=== PATIENT | male | born 1955 | race Caucasian/White ===

== ENCOUNTER 2020-06-03 15:12 | Inpatient (IN) | payer MEDICARE ==
[2020-06-03] MEDS ORDERED: HEPARIN SODIUM,PORCINE 5,000 UNIT/ML 1 ML VIAL IV STA (15:15)
--- NOTE | 2020-06-03 15:22 | ED ---
Chest Pain HPI - General Chief Complaint: Chest Pain Stated Complaint: STEMI Time Seen by Provider: 06/03/20 15:12 Source: EMS Mode of arrival: EMS Limitations: no limitations - History of Present Illness Initial Comments: Patient is a 65-year-old male with past medical history of coronary disease status post CABG in 2005 presents the emergency room with reported chest pain. He states that it started around 1:30 PM today. He did take 2 nitro at home however they're . It did not help his pain. He felt nauseated and diaphoretic. He also took 2 baby aspirins. He called EMS who gave him 2 additional baby aspirins as well as 2 more nitros. Patient's pain is around 3 out of 10. EMS performed EKG which demonstrated inferior ST elevation. STEMI call was activated prior to hospital arrival - Related Data Previous Rx's Medication Instructions Recorded Albuterol Inhaler [Ventolin Hfa 2 puff INHALATION RT-QID PRN #1 06/06/20 Inhaler] inhaler Aspirin 81 mg PO DAILY #30 chew 06/06/20 Atorvastatin [Lipitor] 80 mg PO DAILY #30 tab 06/06/20 Clopidogrel [Plavix] 75 mg PO DAILY #30 tab 06/06/20 Losartan [Cozaar] 50 mg PO DAILY #50 tab 06/06/20 Metoprolol Tartrate [Lopressor] 25 mg PO BID #60 tab 06/06/20 Allergies Allergy/AdvReac Type Severity Reaction Status Date / Time Penicillins Allergy Unknown Verified 06/03/20 19:46 Childhood Review of Systems ROS Statement: Those systems with pertinent positive or pertinent negative responses have been documented in the HPI. ROS Other: All systems not noted in ROS Statement are negative. EKG Findings - EKG Comments: EKG Findings:: EKG demonstrates a normal sinus rhythm with a ventricular rate of 80. ID interval 166. QRS 102. QTC of 46. Acute ST segment elevations in leads 2, 3, aVF. Reciprocal depression in AVL Past Medical History Past Medical History: Hypertension, Myocardial Infarction (IN) History of Any Multi-Drug Resistant Organisms: None Reported Past Surgical History: Coronary Bypass/CABG, Heart Catheterization With Stent Additional Past Surgical History / Comment(s): 2004 4 vessel Past Psychological History: No Psychological Hx Reported Smoking Status: Current every day smoker Past Alcohol Use History: Occasional Past Drug Use History: None Reported General Exam Limitations: no limitations General appearance: alert, in no apparent distress Head exam: Present: atraumatic, normocephalic, normal inspection Eye exam: Present: normal appearance, PERRL, EOMI. Absent: scleral icterus, conjunctival injection, periorbital swelling ENT exam: Present: normal exam, mucous membranes moist Neck exam: Present: normal inspection. Absent: tenderness, meningismus, lymphadenopathy Respiratory exam: Present: normal lung sounds bilaterally. Absent: respiratory distress, wheezes, rales, rhonchi, stridor Cardiovascular Exam: Present: regular rate, normal rhythm, normal heart sounds. Absent: systolic murmur, diastolic murmur, rubs, gallop, clicks GI/Abdominal exam: Present: soft, normal bowel sounds. Absent: distended, tenderness, guarding, rebound, rigid Extremities exam: Present: normal inspection, full ROM, normal capillary refill. Absent: tenderness, pedal edema, joint swelling, calf tenderness Back exam: Present: normal inspection Neurological exam: Present: alert, oriented X3, CN II-XII intact Psychiatric exam: Present: normal affect, normal mood Skin exam: Present: warm, dry, intact, normal color. Absent: rash Course Vital Signs 06/03/20 15:15 Temperature 97.9 F Pulse Rate 82 Respiratory 20 Rate Blood Pressure 131/76 O2 Sat by Pulse 94 L Oximetry Chest Pain [facility] STEMI call was activated prior to arrival. Patient does arrive and pain has markedly improved. Vitals are all stable. analytical lab technician is ready for the patient. I spoke with Dr. Almodovar who requested that the patient be evaluated prior to transport to analytical lab technician. EKG was obtained. Patient does have peripheral IV access. He is given 4000 units heparin. Patient is hemodynamically stable and transported to the analytical lab technician Disposition Clinical Impression: ST elevation myocardial infarction (STEMI) Disposition: ADMITTED IP TO THIS HOSP Condition: Serious Is patient prescribed a controlled substance at d/c from ED?: No Decision to Admit Reason: Admit from EC Decision Date: 06/03/20 Decision Time: 16:07
[2020-06-03] MEDS ORDERED: IV FLUID CONTINUATION 850 ML IV ONE (15:25)
[2020-06-03] MEDS ORDERED: MIDAZOLAM 2 MG/2 ML VIAL IV ONE (15:47)
[2020-06-03] MEDS ORDERED: LIDOCAINE 1% INJ 10MG/ML (20 ML MDV) SQ ONE (15:50)
[2020-06-03] MEDS ORDERED: HEPARIN SODIUM 1,000 UN/ML (10ML VL) ONE (15:58)
[2020-06-03] MEDS ORDERED: TIROFIBAN BOLUS 12.5MG/250 ML BAG IV ONE (15:59)
[2020-06-03] MEDS ORDERED: TIROFIBAN 12.5MG-250ML NS 250 ML IV ONE ×2 (16:00)
[2020-06-03 16:04] LABS: Basophils % (A) 1 %; Eosinophils # (A) 0.2 k/uL (0-0.7); Eosinophils % (A) 3 %; HCT 43.3 % (39.0-53.0); HGB 13.9 gm/dL (13.0-17.5); Lymphocytes # (A) 0.8 k/uL (1.0-4.8); Lymphocytes % (A) 12 %; MCH 30.9 pg (25.0-35.0); MCHC 32.2 g/dL (31.0-37.0); MCV 96.1 fL (80.0-100.0); Mean Platelet Volume 8.5; Monocytes # (A) 0.3 k/uL (0-1.0); Monocytes % (A) 4 %; Neutrophils # (A) 5.7 k/uL (1.3-7.7); Neutrophils % (A) 80 %; Platelet Count 135 k/uL (150-450); RBC 4.51 m/uL (4.30-5.90); RDW 12.5 % (11.5-15.5); WBC 7.2 k/uL (3.8-10.6)
[2020-06-03] MEDS ORDERED: HYDROmorphone 1 MG/ML 1 ML SYRINGE ONE ×2 (16:04→16:50)
[2020-06-03] MEDS ORDERED: HYDROmorphone 1 MG/ML 1 ML SYRINGE IVP ONE ×2 (16:05→16:53)
[2020-06-03] MEDS ORDERED: NALOXONE 0.4 MG/ML 1 ML VIAL IV PRN (16:06)
[2020-06-03] MEDS ORDERED: niCARdipine Syringe (1,000 mcg/10 mL) INTRACORON ONE (16:11)
[2020-06-03] MEDS ORDERED: IOPAMIDOL-370 100ML BTL INJ ONE ×3 (16:15→16:53)
[2020-06-03 16:16] LABS: African American GFR (CKD) >90 (>60 ml/min/1.73 sqM); Anion Gap 5 mmol/L; Blood Urea Nitrogen 12 mg/dL (9-20); Calcium 8.9 mg/dL (8.4-10.2); Carbon Dioxide 27 mmol/L (22-30); Chloride 106 mmol/L (98-107); Glucose 141 mg/dL (74-99); Magnesium 2.1 mg/dL (1.6-2.3); Non-African American GFR(CKD) >90 (>60 ml/min/1.73 sqM); Potassium 3.8 mmol/L (3.5-5.1); Sodium 138 mmol/L (137-145)
[2020-06-03] MEDS ORDERED: POTASSIUM CHLORIDE ER 20 MEQ TAB.ER PO STA (16:32)
[2020-06-03] MEDS ORDERED: METOPROLOL TARTRATE 5 MG/5 ML VIAL IVP ONE ×2 (16:49→16:53)
[2020-06-03] MEDS ORDERED: CLOPIDOGREL 75 MG TAB ONE (16:49)
[2020-06-03] MEDS ORDERED: CLOPIDOGREL 75 MG TAB PO ONE (16:54)
[2020-06-03] MEDS ORDERED: ZOLPIDEM 5 MG TAB PO PRN (17:18)
[2020-06-03 17:41] LABS: Glucose,Whole Blood 113 mg/dL (75-99)
[2020-06-03] MEDS: SODIUM CHLORIDE 0.9% 1,000 ML IV SCH (18:03)
[2020-06-03] MEDS: TIROFIBAN 12.5MG-250ML NS 250 ML IV SCH (18:04)
--- NOTE | 2020-06-03 18:51 | CC ---
CARDIAC CATHETERIZATION REPORT CARDIAC CATHETERIZATION AND PCI REPORT: DATE OF SERVICE: 06/03/2020. PROCEDURES: 1. Left heart catheterization and coronary angiography. 2. Selective injection of 3 vein grafts and a left internal mammary artery graft. 3. Percutaneous transluminal coronary angioplasty and stenting of body of the vein graft to the distal right coronary artery with a drug-eluting stent and percutaneous transluminal coronary angioplasty and stenting of PDA branch of RCA through the vein graft with a drug-eluting stent. PERFORMED BY: Dr. Kojo Almodovar. Moderate conscious sedation time was 67 minutes. Patient was administered Versed. Oxygen saturation, hemodynamics and EKG were monitored closely. CLINICAL INFORMATION: Mr. Guillermo Reyna is a 65-year-old gentleman with history of prior MO, PCI of RCA and bypass surgery in 2004 or so. He is a smoker, has hypertension, has not been taking medicines. He presented to the ER brought by EMS with inferior ST-elevation, advised prompt cardiac catheterization after evaluation. PROCEDURE NOTE: Under local anesthesia and strict aseptic precautions, a 6-Haitian introducer was placed in the right femoral artery. I started off with a right Miguel-type guide catheter and performed intervention of the right coronary artery graft. This was an SVG graft to RCA. I stented the body of the graft and the PDA branch beyond the graft insertion site. I then performed diagnostic cardiac catheterization. An AR2 catheter was used to perform selective injection of the 2 other vein grafts to the diagonal and OM. I used a Wolf catheter to get selective injection of the OLIVERA. I used a standard left Miguel catheter for the left coronary artery, and a pigtail catheter was used to check LV pressures. LV gram was not performed. Patient received 5500 units of heparin and he also received Aggrastat bolus and infusion as per protocol. He received 600 mg of Plavix orally. CARDIAC CATHETERIZATION FINDINGS: The left ventricular end-diastolic pressure was about 12 to 13 mmHg. There was no gradient across the aortic valve. CORONARY ANGIOGRAPHY FINDINGS: RIGHT CORONARY ARTERY: This vessel is totally occluded without any antegrade flow. It appears to have been stented. The stent is evident, but no flow is noted. LEFT MAIN CORONARY ARTERY: This is a short patent vessel that immediately bifurcates into LAD and circumflex. Left main itself has no significant disease. LEFT ANTERIOR DESCENDING CORONARY ARTERY: This gives off a large first diagonal branch. Then LAD is occluded with limited flow. The first diagonal has a 30% to 40% narrowing. No significant disease is noted. In the first diagonal no more than 40% narrowing. LEFT POSTERIOR CIRCUMFLEX CORONARY ARTERY: This vessel comes off as a single vessel with a tight 90% stenosis, limited flow noted. LEFT INTERNAL MAMMARY ARTERY GRAFT TO LAD: This graft is widely patent, has no disease at its origin and insertion site. Opacified LAD has mild diffuse disease but no significant stenosis. SAPHENOUS VEIN GRAFT TO THE OBTUSE MARGINAL BRANCH OF CIRCUMFLEX: This graft is patent, has no significant disease. Opacified obtuse marginal is small in caliber and distribution, has minor irregularities but no significant disease. SAPHENOUS VEIN GRAFT TO THE MAJOR DIAGONAL BRANCH OF LAD: This graft is widely patent. No significant disease at the origin, body or insertion site. Opacified diagonal is of fair caliber and distribution, has no significant disease. SAPHENOUS VEIN GRAFT TO THE RCA: This graft is highly diseased. There is a lot of thrombus burden in the graft. In the proximal one third of the body there is a 99% stenosis with thrombus. Middle one third has thrombus. Distally also there is some stenosis. It goes back and opacifies the [place] vessel to some extent. The PDA branch has a tight stenosis of about 80% to 90% noted. The PLV branch has a limited flow. Most of the flow is in the PDA branch, which has a 90% lesion, but the body of the graft also has significant thrombus and stenosis. LEFT VENTRICULOGRAM: Left ventriculogram was not performed. FINAL IMPRESSION: This patient has a right-dominant system, total occlusion of RCA, total occlusion of the LAD. Opacified diagonal is free of significant disease. Circumflex has limited flow. Vein graft to the RCA is the culprit lesion. There was a 99% stenosis with thrombus in the body, and beyond insertion site the opacified PDA has a 95% stenosis. PLV has limited flow. The vein grafts to the diagonal and obtuse marginal are widely patent. There is no gradient across aortic valve and filling pressures are good. RECOMMENDATIONS: I recommended PCI of vein graft to RCA and performed this expeditiously. PCI PROCEDURE DETAILS: A standard right Miguel guide catheter was used to cannulate the vein graft to RCA. A run-through wire was used to cross the lesion. Wire was kept distally. I used a 3.0 caliber Trek balloon to pre-dilate the entire vein graft in the proximal, mid and distal portion. A 23 mm long 3.5 caliber Xience stent was deployed in the body of the graft proximally. Excellent angiographic result was achieved. I then noted that the PDA had a very tight stenosis. I advanced the run-through wire, kept it in the distal aspect of the PDA. I pre-dilated this with a 2.5 caliber 20 mm NC Emerge balloon. I then used a 3.0 caliber 23 mm long Xience stent and deployed this in the PDA branch. Excellent angiographic result without complication was achieved. The sheath was taken out and Perclose device used to secure hemostasis. Patient received 600 mg of Plavix. He also received Aggrastat bolus and infusion and 5500 units of heparin. ACT was initially 282. At the end of the procedure it was 265. Results were discussed with the patient and his . He was sent to the ICU in a stable condition. MMODL / IJN: [id number] /
[2020-06-03] MEDS ORDERED: RX INFO: IV CONTRAST WAS GIVEN 1 EACH MISC MISCELLANE PRN (18:57)
--- NOTE | 2020-06-03 18:57 | CONS ---
CONSULTATION This is a 65-year-old retired gentleman who lives in [place] but has his health care in [facility]. He sees a jewelry designer by name Demetrio and apparently had aortocoronary bypass surgery in 2005 with 4 bypasses. Following coronary angiography, I discovered that these bypasses are OLIVERA to LAD, vein graft to the distal RCA, vein graft to the major diagonal branch and a vein graft to the obtuse marginal branch of circumflex. Prior to his bypass surgery, he did have an TX and had stenting of RCA. This gentleman was doing fairly well at home. Suddenly he developed discomfort in the chest which he describes as a heavy pressure that came on and made him quite uncomfortable. He also had some diaphoresis and came into the hospital, was found to have an inferior ST elevation and was taken to the lab assistant promptly after giving him aspirin 325 mg and also heparin 4000 units intravenously. I saw him in the lab assistant. At that time he was complaining of 6/10 chest pain, had a [address] elevation, but was hemodynamically stable. I recommended prompt cardiac catheterization. PAST MEDICAL HISTORY: Past medical history is remarkable for hypertension and CAD, prior bypass surgery and prior TX and PCI. However, patient has not been taking any medications lately. He takes aspirin occasionally. MEDICATIONS: None at this time. He used to be on metoprolol in the past but stopped taking it at least for 2-3 months. He takes aspirin occasionally. ALLERGIES: NONE. REVIEW OF SYSTEMS: Remarkable for chest discomfort with exertion that has been going on for the last month or two and prolonged pain since yesterday. At the time of my evaluation he is comfortable. Around 1:30 p.m. today he started having chest pain that got progressively worse and EMS was called. They gave him 2 more nitros, with modest improvement in pain. PHYSICAL EXAMINATION: On examination, blood pressure is 140/80, pulse rate is 70 per minute, regular. HEENT unremarkable. Fundus was not examined by me. Neck is supple. There is no JVD. I do not hear a carotid bruit. Heart exam reveals S1, S2 heard normally. No significant murmurs. Lungs are clear. Abdomen is soft, nontender. Lower extremities reveal palpable pulses. No edema. Central nervous system is normal. EKG revealed sinus mechanism with inferior ST elevation suggestive of acute inferior ST- elevation TX, but there are also some Q-waves in the inferior leads as well. The patient is a smoker and has hypertension. IMPRESSION: 1. Acute inferior ST-elevation myocardial infarction. 2. History of smoking and chronic obstructive pulmonary disease. 3. History of prior inferior myocardial infarction, percutaneous coronary intervention and eventually bypass surgery in either 2004 or 2005. RECOMMENDATIONS: I recommended prompt cardiac catheterization and PCI and proceeded to perform this in the same setting. MMODL / IJN: [id number] /
[2020-06-03] MEDS: METOPROLOL TARTRATE 25 MG TAB PO SCH (21:29)
[2020-06-04] MEDS: TIROFIBAN 12.5MG-250ML NS 250 ML IV SCH (01:52)
[2020-06-04 06:37] LABS: Basophils % (A) 1 %; Eosinophils # (A) 0.2 k/uL (0-0.7); Eosinophils % (A) 3 %; HCT 45.1 % (39.0-53.0); HGB 14.6 gm/dL (13.0-17.5); Lymphocytes # (A) 1.1 k/uL (1.0-4.8); Lymphocytes % (A) 14 %; MCH 31.8 pg (25.0-35.0); MCHC 32.3 g/dL (31.0-37.0); MCV 98.4 fL (80.0-100.0); Mean Platelet Volume 8.4; Monocytes # (A) 0.4 k/uL (0-1.0); Monocytes % (A) 5 %; Neutrophils # (A) 5.6 k/uL (1.3-7.7); Neutrophils % (A) 76 %; Platelet Count 127 k/uL (150-450); RBC 4.58 m/uL (4.30-5.90); RDW 12.4 % (11.5-15.5); WBC 7.3 k/uL (3.8-10.6)
[2020-06-04 06:54] LABS: African American GFR (CKD) >90 (>60 ml/min/1.73 sqM); Anion Gap 4 mmol/L; Blood Urea Nitrogen 9 mg/dL (9-20); Carbon Dioxide 27 mmol/L (22-30); Chloride 107 mmol/L (98-107); Glucose 100 mg/dL (74-99); Non-African American GFR(CKD) >90 (>60 ml/min/1.73 sqM); Potassium 4.4 mmol/L (3.5-5.1); Sodium 138 mmol/L (137-145)
[2020-06-04] MEDS: ASPIRIN 81 MG PO SCH (09:01)
[2020-06-04] MEDS: LOSARTAN 50 MG TAB PO SCH (09:01)
[2020-06-04] MEDS: CLOPIDOGREL 75 MG TAB PO SCH (09:01)
[2020-06-04] MEDS: METOPROLOL TARTRATE 25 MG TAB PO SCH ×2 (09:01→22:00)
[2020-06-04] MEDS: ATORVASTATIN 80 MG TAB PO SCH (09:01)
[2020-06-04] MEDS: SODIUM CHLORIDE 0.9% 1,000 ML IV SCH (09:03)
--- NOTE | 2020-06-04 11:29 | ECHOF ---
Referral Reason:STEMI MEASUREMENTS -------- HEIGHT: 165.1 cm WEIGHT: 90.7 kg BP: RVIDd: 3.7 cm (< 3.3) IVSd: 1.1 cm (0.6 - 1.1) LVIDd: 5.6 cm (3.9 - 5.3) LVPWd: 1.2 cm (0.6 - 1.1) IVSs: 1.4 cm LVIDs: 4.3 cm LVPWs: 1.1 cm LA Diam: 4.2 cm (2.7 - 3.8) LAESV Index (A-L): 30.44 ml/m Ao Diam: 3.2 cm (2.0 - 3.7) AV Cusp: 1.7 cm (1.5 - 2.6) MV EXCURSION: 22.495 mm (> 18.000) MV EF SLOPE: 87 mm/s (70 - 150) EPSS: 1.1 cm MV E Khalif: 0.52 m/s MV DecT: 377 ms MV A Khalif: 0.68 m/s MV E/A Ratio: 0.76 RAP: 5.00 mmHg RVSP: 28.35 mmHg FINDINGS -------- Sinus rhythm. This was a techncally difficult study with suboptimal views, , Lumason utilized for enhancement of im ages. The left ventricular size is normal. There is mild concentric left ventricular hypertrophy. Overa ll left ventricular systolic function is moderately impaired with, an EF between 35 - 40 %. Basal i nferior LV wall motion is hypokinetic. Basal inferoseptal LV wall motion is akinetic. Mid infer ior LV wall motion is hypokinetic. Mid inferoseptal LV wall motion is akinetic. Apical anterior LV wall motion is dyskinetic. Apical lateral LV wall motion is dyskinetic. Apical septum LV wall motion is dyskinetic. [place] Hypokinesis. The right ventricle is normal in size. LA is midly dilated 29-33ml/m2. The right atrial size is normal. 5.0mg OF Lumason UTLIZED: 2 OR MORE WALL SEGMENTS NOT VISUALIZED. There is mild aortic valve sclerosis. There is no evidence of aortic regurgitation. Mild mitral annular calcification present. Mild mitral regurgitation is present. Mild tricuspid regurgitation present. Right ventricular systolic pressure is normal at < 35 mmHg. There is no pulmonic regurgitation present. The aortic root size is normal. There is no pericardial effusion. CONCLUSIONS -------- 1. This was a techncally difficult study with suboptimal views, , Lumason utilized for enhancement of images. 2. There is mild concentric left ventricular hypertrophy. 3. Overall left ventricular systolic function is moderately impaired with, an EF between 35 - 40 %. 4. Basal inferior LV wall motion is hypokinetic. 5. Basal inferoseptal LV wall motion is akinetic. 6. Mid inferior LV wall motion is hypokinetic. 7. Mid inferoseptal LV wall motion is akinetic. 8. Apical anterior LV wall motion is dyskinetic. 9. Apical lateral LV wall motion is dyskinetic. 10. Apical septum LV wall motion is dyskinetic. 11. [place] Hypokinesis. 12. LA is midly dilated 29-33ml/m2. 13. 5.0mg OF Lumason UTLIZED: 2 OR MORE WALL SEGMENTS NOT VISUALIZED. 14. There is mild aortic valve sclerosis. 15. Mild mitral regurgitation is present. 16. Mild tricuspid regurgitation present. 17. There is no pericardial effusion. IRRIGATOR: Vidhi Ta RDCS
--- NOTE | 2020-06-04 14:30 | PN ---
PROGRESS NOTE Mr. Reyna under came in with acute inferior IN yesterday and underwent stenting of a vein graft to the RCA as well as the PDA branch of RCA through the vein graft. He is doing well today. He has no chest pain, comfortable. Right groin is clean and dry. Vital signs stable. No JVD. S1, S2 heard normally. Lungs are clear. Abdominal and lower extremity exam unchanged. PLAN: Plan is to continue current medications, increase activity and move him to telemetry today. His 2 other vein grafts and OLIVERA are patent. MMODL / IJN: [id number] /
--- NOTE | 2020-06-04 22:04 | P.HPIM ---
History of Present Illness H&P Date: 06/04/20 Chief Complaint: chest Pain Patient is a 65-year-old male with a known history of coronary artery disease status post CABG in 2005 came to ER with the complaints of chest pain. Patient states that he was sitting at home and suddenly developed mid retrosternal chest pain at around 1:30 PM. Patient did take nitroglycerin tablets however they were . Patient was having continuous pain at rest with nausea and shortness of breath and also patient became diaphoretic. EMS was called and patient was given 2 aspirins and also 2 more nitros. EKG by EMS showed ST elevation in the inferior leads. Laboratory data showed WBC 7.2, hemoglobin 13.9, platelets 135 Sodium 138, potassium 3.8, chloride 106, BUN 12 and creatinine 0.79 Troponin 0 0.049 and 19.8. Patient was taken to cardiac catheterization with stenting of the body of the vein graft to the distal right coronary artery with a drug-eluting stent and PCI and stenting of PDA branch of the RCA through the vein graft with a drug-eluting stent. Patient is currently being monitored in ICU. Review of Systems Constitutional: Patient denies any fever or chills . No generalized weakness or weight loss. Abdomen: Patient denied nausea vomiting and diarrhea and abdominal pain. Cardiovascular: Patient did have chest pain associated shortness of breath and diaphoresis. no palpitations. Respiratory: patient denied any cough is from production. No shortness of breath Neurologic: Patient denied any numbness or tingling headache. Musculoskeletal: Patient denies any complaints of joint swelling or deformity. Skin: Negative Psychiatric: Negative Endocrine: No heat or cold intolerance. No recent weight gain. Genitourinary: No dysuria or hematuria. All other 14 point ROS negative except the above Past Medical History Past Medical History: Coronary Artery Disease (CAD), Chest Pain / Angina, Hypertension, Myocardial Infarction (OR) Last Myocardial Infarction Date:: unknown History of Any Multi-Drug Resistant Organisms: None Reported Past Surgical History: Coronary Bypass/CABG, Heart Catheterization With Stent Additional Past Surgical History / Comment(s): 2004 4 vessel Date of Last Stent Placement:: 2003 Past Psychological History: No Psychological Hx Reported Smoking Status: Current every day smoker Past Alcohol Use History: Occasional Past Drug Use History: None Reported Medications and Allergies Home Medications Medication Instructions Recorded Confirmed Type Aspirin EC [Ecotrin Low Dose] 162 mg PO ONCE PRN 06/03/20 06/03/20 History Allergies Allergy/AdvReac Type Severity Reaction Status Date / Time Penicillins Allergy Unknown Verified 06/03/20 19:46 Childhood Physical Exam Vitals: Vital Signs Temp Pulse Resp BP Pulse Ox 06/04/20 00:00 98.4 F 59 L 21 130/69 95 06/03/20 23:00 53 L 12 135/74 92 L 06/03/20 22:00 56 L 17 131/78 93 L 06/03/20 21:00 56 L 18 130/72 93 L 06/03/20 20:30 56 L 17 131/68 92 L 06/03/20 20:00 97.9 F 58 L 20 123/66 92 L 06/03/20 19:30 58 L 16 125/70 90 L 06/03/20 19:00 61 14 123/77 90 L 06/03/20 18:45 64 16 123/77 90 L 06/03/20 18:30 66 22 125/88 90 L 06/03/20 18:21 97.3 F L 70 25 H 125/88 90 L 06/03/20 17:35 97.3 F L 75 16 143/97 94 L 06/03/20 15:15 97.9 F 82 20 131/76 94 L Intake and Output 06/03/20 06/03/20 06/04/20 14:59 22:59 06:59 Intake Total 1263 150 Output Total 475 Balance 1263 -325 Intake: IV 1263 150 Sodium Chloride 0.9% 1, 450 150 000 ml @ 75 mls/hr IV . [id number] [facility] Rx#:[id number] Output: Urine 475 Other: Voiding Method Urinal Urinal # Voids 1 Weight 90.718 kg PHYSICAL EXAMINATION: Patient is lying in the bed comfortably, no acute distress, awake alert and oriented.. HEENT: Normocephalic. Neck is supple. Pupils reactive. Nostrils clear. Oral cavity is moist. Ears reveal no drainage. Neck reveals no JVD, carotid bruits, or thyromegaly. CHEST EXAMINATION: Trachea is central. Symmetrical expansion. Lung fu clear to auscultation and percussion. CARDIAC: Normal S1, S2 with no gallops. No murmurs ABDOMEN: Soft. Bowel sounds normal. No organomegaly. No abdominal bruits. Extremities: reveal no edema. No clubbing or cyanosis Neurologically awake, alert, oriented x3 with well-coordinated movements. No focal deficits noted Skin: No rash or skin lesions. Psychiatric: Coperative. Nonsuicidal Musculoskeletal: No joint swelling or deformity. Normal range of motion. Results CBC & Chem 7: 06/04/20 05:38 06/04/20 05:38 Labs: Abnormal Lab Results - Last 24 Hours (Table) 06/03/20 06/03/20 06/03/20 Range/Units 15:50 15:50 15:50 Plt Count 135 L (150-450) k/uL Lymphocytes # 0.8 L (1.0-4.8) k/uL Glucose 141 H (74-99) mg/dL POC Glucose (mg/dL) (75-99) mg/dL Troponin I 0.049 H* (0.000-0.034) ng/mL 06/03/20 06/03/20 Range/Units 17:39 21:47 Plt Count (150-450) k/uL Lymphocytes # (1.0-4.8) k/uL Glucose (74-99) mg/dL POC Glucose (mg/dL) 113 H (75-99) mg/dL Troponin I 19.800 H* (0.000-0.034) ng/mL Thrombosis Risk Factor Assmnt - DVT/VTE Prophylaxis DVT/VTE Prophylaxis: Pharmacologic Prophylaxis ordered - Choose All That Apply Any of the Below Risk Factors Present?: Yes Each Factor Represents 1 point: Acute OR Each Risk Factor Represents 2 Points: Age 61-74 years Thrombosis Risk Factor Assessment Total Risk Factor Score: 3 Thrombosis Risk Factor Assessment Level: Moderate Risk Assessment and Plan Assessment: Acute ST noted OR status post cardiac catheterization and stent placement x2 History of coronary artery status post CABG in 2005 Hypertension History of OR Currently everyday smoker Occasional alcohol use DVT prophylaxis Plan: Patient will be continued on telemetry monitoring. Status post stent placement. Continue with aspirin, statins, Plavix and metoprolol and losartan was also added. Cardiology is following. Time with Patient: Greater than 30
[2020-06-05 05:56] LABS: Basophils # (A) 0.1 k/uL (0-0.2); Basophils % (A) 1 %; Eosinophils # (A) 0.4 k/uL (0-0.7); Eosinophils % (A) 5 %; HCT 48.1 % (39.0-53.0); HGB 15.6 gm/dL (13.0-17.5); Lymphocytes # (A) 1.2 k/uL (1.0-4.8); Lymphocytes % (A) 14 %; MCHC 32.4 g/dL (31.0-37.0); MCV 95.7 fL (80.0-100.0); Mean Platelet Volume 8.7; Monocytes # (A) 0.6 k/uL (0-1.0); Monocytes % (A) 7 %; Neutrophils # (A) 6.2 k/uL (1.3-7.7); Neutrophils % (A) 72 %; Platelet Count 139 k/uL (150-450); RBC 5.03 m/uL (4.30-5.90); RDW 12.5 % (11.5-15.5); WBC 8.5 k/uL (3.8-10.6)
[2020-06-05 06:03] LABS: African American GFR (CKD) >90 (>60 ml/min/1.73 sqM); Anion Gap 4 mmol/L; Blood Urea Nitrogen 11 mg/dL (9-20); Calcium 9.2 mg/dL (8.4-10.2); Carbon Dioxide 30 mmol/L (22-30); Chloride 104 mmol/L (98-107); Glucose 94 mg/dL (74-99); Non-African American GFR(CKD) >90 (>60 ml/min/1.73 sqM); Sodium 138 mmol/L (137-145)
[2020-06-05] MEDS: CLOPIDOGREL 75 MG TAB PO SCH (08:24)
[2020-06-05] MEDS: ASPIRIN 81 MG PO SCH (08:24)
[2020-06-05] MEDS: LOSARTAN 50 MG TAB PO SCH (08:24)
[2020-06-05] MEDS: ATORVASTATIN 80 MG TAB PO SCH (08:24)
[2020-06-05] MEDS: METOPROLOL TARTRATE 25 MG TAB PO SCH ×2 (08:25→20:20)
--- NOTE | 2020-06-05 09:26 | PN ---
PROGRESS NOTE Mr. Reyna is in sinus rhythm, comfortable, doing well. He presented with acute inferior SD and underwent stenting of a vein graft to the RCA. Ejection fraction is about 35-40 percent, significant wall motion abnormalities, but patient is not in heart failure. He is quite stable and doing well. He is in sinus rhythm. Vital signs stable. No JVD. S1- S2 heard normally. Lungs are clear. Abdomen and lower extremity exam unchanged. Right groin is clean and dry. PLAN: Plan is to continue current medications, increase activity and possible discharge tomorrow. Discussed my thoughts in detail with the patient. Will move him to telemetry if bed is available. MMODL / IJN: [id number] /
[2020-06-05 17:30] VITALS: RESP 18
--- NOTE | 2020-06-05 22:11 | P.PN ---
Subjective Progress Note Date: 06/05/20 Principal diagnosis: Acute ST elevated SD status post cardiac catheterization and stent placement x2 Patient is a 65-year-old male with a known history of coronary artery disease status post CABG in 2005 came to ER with the complaints of chest pain. Patient states that he was sitting at home and suddenly developed mid retrosternal chest pain at around 1:30 PM. Patient did take nitroglycerin tablets however they were . Patient was having continuous pain at rest with nausea and shortness of breath and also patient became diaphoretic. EMS was called and patient was given 2 aspirins and also 2 more nitros. EKG by EMS showed ST elevation in the inferior leads. Laboratory data showed WBC 7.2, hemoglobin 13.9, platelets 135 Sodium 138, potassium 3.8, chloride 106, BUN 12 and creatinine 0.79 Troponin 0 0.049 and 19.8. Patient was taken to cardiac catheterization with stenting of the body of the vein graft to the distal right coronary artery with a drug-eluting stent and PCI and stenting of PDA branch of the RCA through the vein graft with a drug-eluting stent. 06/05/2020 Patient is currently lying in the bed comfortably. No complaints of chest pain or shortness of breath. Patient is status post stent placement. No arrhythmias noted overnight. Patient is being continued on aspirin Plavix and statins and metoprolol. Cardiology is following. Patient is being transferred to medical floor today. Current medications reviewed. Objective - Vital Signs Vital signs: Vital Signs Temp 98.6 F 06/05/20 17:25 Pulse 62 06/05/20 17:25 Resp 18 06/05/20 17:25 BP 126/73 06/05/20 17:25 Pulse Ox 95 06/05/20 17:25 Intake & Output 06/05/20 06/05/20 06/06/20 06:59 18:59 06:59 Intake Total 150 900 Output Total 575 1400 Balance -425 -500 Weight 80.1 kg Intake: Oral 150 900 Output: Urine 575 1400 Other: Voiding Method Toilet Toilet Urinal Urinal # Voids 1 1 - Exam PHYSICAL EXAMINATION: Patient is lying in the bed comfortably, no acute distress, awake alert and oriented.. HEENT: Normocephalic. Neck is supple. Pupils reactive. Nostrils clear. Oral cavity is moist. Ears reveal no drainage. Neck reveals no JVD, carotid bruits, or thyromegaly. CHEST EXAMINATION: Trachea is central. Symmetrical expansion. Lung fu clear to auscultation and percussion. CARDIAC: Normal S1, S2 with no gallops. No murmurs ABDOMEN: Soft. Bowel sounds normal. No organomegaly. No abdominal bruits. Extremities: reveal no edema. No clubbing or cyanosis Neurologically awake, alert, oriented x3 with well-coordinated movements. No focal deficits noted Skin: No rash or skin lesions. Psychiatric: Coperative. Nonsuicidal Musculoskeletal: No joint swelling or deformity. Normal range of motion. - Labs CBC & Chem 7: 06/05/20 05:35 06/05/20 05:35 Labs: Abnormal Lab Results - Last 24 Hours (Table) 06/05/20 Range/Units 05:35 Plt Count 139 L (150-450) k/uL Assessment and Plan Assessment: Acute ST elevated SD status post cardiac catheterization and stent placement x2 History of coronary artery status post CABG in 2005 Hypertension History of SD Currently everyday smoker Occasional alcohol use DVT prophylaxis Plan: Patient will be continued on telemetry monitoring. Status post stent placement. Continue with aspirin, statins, Plavix and metoprolol and losartan was also added. Cardiology is following. Time with Patient: Greater than 30
[2020-06-06] MEDS: ATORVASTATIN 80 MG TAB PO SCH (08:21)
[2020-06-06] MEDS: CLOPIDOGREL 75 MG TAB PO SCH (08:21)
[2020-06-06] MEDS: LOSARTAN 50 MG TAB PO SCH (08:21)
[2020-06-06] MEDS: ASPIRIN 81 MG PO SCH (08:21)
[2020-06-06] MEDS: METOPROLOL TARTRATE 25 MG TAB PO SCH (08:21)
[2020-06-06 08:26] VITALS: TEMP 98.2
[2020-06-06 13:38] VITALS: BP 96/54; PULSE 67
--- NOTE | 2020-06-06 16:39 | PN ---
PROGRESS NOTE Mr. Reyna has history of CAD, prior bypass surgery, came with inferior IL, underwent stenting of SVG to RCA. Doing better. No chest pain. Explained to him his findings on the cardiac cath, reduced ejection fraction. Advised the importance of medications. We will continue all his current medical regimen and possibly discharge him today and I will see him in the office in two weeks. Discharge instructions regarding diet, medications, activity and also the importance of medication compliance was discussed. Vitals are stable. No JVD. S1-S2 heard normally. Lungs are clear. Abdomen and lower extremity exam unchanged. MMODL / IJN: [id number] /
== END 2020-06-06 14:49 | disposition home or self-care (01) | DRG 247 ==
LOC: EC 15:12 → 2SICU 15:30 → 3SCARD 06-05 15:34
PROVIDERS: ADMIT Internal Medicine; ATTEND Internal Medicine
PROC: B2181ZZ Fluoroscopy of Left Internal Mammary Bypass Graft using Low Osmolar Contrast (ICD-10-PCS; principal; 2020-06-03 15:28)
PROC: B2131ZZ Fluoroscopy of Multiple Coronary Artery Bypass Grafts using Low Osmolar Contrast (ICD-10-PCS; principal; 2020-06-03 15:28)
PROC: B2111ZZ Fluoroscopy of Multiple Coronary Arteries using Low Osmolar Contrast (ICD-10-PCS; principal; 2020-06-03 15:28)
PROC: 027034Z Dilation of Coronary Artery, One Artery with Drug-eluting Intraluminal Device, Percutaneous Approach (ICD-10-PCS; principal; 2020-06-03 15:28)
PROC: 4A023N7 Measurement of Cardiac Sampling and Pressure, Left Heart, Percutaneous Approach (ICD-10-PCS; principal; 2020-06-03 15:28)
DX: I21.19 ST elevation (STEMI) myocardial infarction involving other coronary artery of inferior wall (principal); I25.810 Atherosclerosis of coronary artery bypass graft(s) without angina pectoris; F17.200 Nicotine dependence, unspecified, uncomplicated; I10 Essential (primary) hypertension; I25.2 Old myocardial infarction; J44.9 Chronic obstructive pulmonary disease, unspecified; Z79.899 Other long term (current) drug therapy; Z79.02 Long term (current) use of antithrombotics/antiplatelets; Z79.82 Long term (current) use of aspirin; Z95.1 Presence of aortocoronary bypass graft; Z95.5 Presence of coronary angioplasty implant and graft; Z88.0 Allergy status to penicillin
CPT/HCPCS: 36415; 80048; 83735; 84484; 85025; 85347; 93306; 93459; 96374; 99285

== ENCOUNTER 2022-07-03 16:49 | Inpatient (IN) | payer MEDICARE ==
[2022-07-03 17:37] LABS: Appearance,Urine Clear (Clear); Bilirubin,Urine Negative (Negative); Blood,Urine Negative (Negative); Color,Urine Yellow; Glucose,Urine (UA) Negative (Negative); Ketones,Urine Negative (Negative); Leukocyte Esterase,Urine Negative (Negative); Nitrite,Urine Negative (Negative); PH, Urine 6.5 (5.0-8.0); Protein,Urine Negative (Negative); Specific Gravity,Urine 1.012 (1.001-1.035)
[2022-07-03 17:43] LABS: ALT 45 U/L (4-49); AST 39 U/L (17-59); African American GFR (CKD) >90 (>60 ml/min/1.73 sqM); Albumin 4.2 g/dL (3.5-5.0); Alkaline Phosphatase 88 U/L (38-126); Anion Gap 14 mmol/L; Blood Urea Nitrogen 10 mg/dL (9-20); Calcium 9.1 mg/dL (8.4-10.2); Carbon Dioxide 21 mmol/L (22-30); Chloride 100 mmol/L (98-107); Glucose 130 mg/dL (74-99); Magnesium 1.9 mg/dL (1.6-2.3); Non-African American GFR(CKD) >90 (>60 ml/min/1.73 sqM); Potassium 4.1 mmol/L (3.5-5.1); Sodium 135 mmol/L (137-145); Total Bilirubin 0.4 mg/dL (0.2-1.3); Total Protein 7.2 g/dL (6.3-8.2)
--- NOTE | 2022-07-03 17:47 | ED ---
Chest Pain HPI - General Chief Complaint: Chest Pain Stated Complaint: Chest pain Time Seen by Provider: 07/03/22 17:47 Source: patient, RN notes reviewed Mode of arrival: ambulatory - History of Present Illness Initial Comments: Patient is a 67-year-old male presents the emergency room after having 2 episodes of chest pain earlier today. He reports the first episode was earlier this morning in which he took 2 nitroglycerin sublingual and had relief of his chest pain. He states that the second episode of chest pain happened around 3 PM and took additional nitroglycerin sublingual and then came to the emergency room. He has not had any recurrence of chest pain since his second dose of nitroglycerin. He is established with cardiology and has known CAD and a stent. He is on a meta Plavix baby aspirin losartan and Aldactone at home. He has been taking his medications as prescribed. - Related Data Home Medications Medication Instructions Recorded Confirmed Atorvastatin Calcium [Lipitor] 40 mg PO DAILY 07/03/22 07/03/22 Metoprolol Tartrate [Lopressor] 12.5 mg PO DAILY 07/03/22 07/03/22 Previous Rx's Medication Instructions Recorded Albuterol Inhaler [Ventolin Hfa 2 puff INHALATION RT-QID PRN #1 06/06/20 Inhaler] inhaler Aspirin 81 mg PO DAILY #30 chew 06/06/20 Clopidogrel [Plavix] 75 mg PO DAILY #30 tab 06/06/20 Losartan [Cozaar] 50 mg PO DAILY #50 tab 06/06/20 Allergies Allergy/AdvReac Type Severity Reaction Status Date / Time Penicillins Allergy Unknown Verified 07/03/22 19:18 Childhood Review of Systems ROS Statement: Those systems with pertinent positive or pertinent negative responses have been documented in the HPI. ROS Other: All systems not noted in ROS Statement are negative. EKG Findings - EKG Comments: EKG Findings:: Sinus inferior myocardial infarct indeterminant age probably old, ventricular rate 71 bpm, MI interval 164 ms, QRS duration 107 ms, QT/QTC 367/390 ms, PRT axes 61, -80, -53 Past Medical History Past Medical History: Hypertension, Myocardial Infarction ([place]) Last Myocardial Infarction Date:: unknown History of Any Multi-Drug Resistant Organisms: None Reported Past Surgical History: Coronary Bypass/CABG, Heart Catheterization With Stent Additional Past Surgical History / Comment(s): 2004 4 vessel Date of Last Stent Placement:: 2003 Past Psychological History: No Psychological Hx Reported Smoking Status: Current every day smoker Past Alcohol Use History: Occasional Past Drug Use History: None Reported General Exam General appearance: alert, in no apparent distress Head exam: Present: atraumatic, normocephalic, normal inspection Eye exam: Present: normal appearance, PERRL, EOMI. Absent: scleral icterus, conjunctival injection, periorbital swelling ENT exam: Present: normal exam, mucous membranes moist Neck exam: Present: normal inspection. Absent: tenderness, meningismus, lymphadenopathy Respiratory exam: Present: normal lung sounds bilaterally. Absent: respiratory distress, wheezes, rales, rhonchi, stridor Cardiovascular Exam: Present: regular rate, normal rhythm, normal heart sounds. Absent: systolic murmur, diastolic murmur, rubs, gallop, clicks GI/Abdominal exam: Present: soft, normal bowel sounds. Absent: distended, tenderness, guarding, rebound, rigid Extremities exam: Present: normal inspection, full ROM, normal capillary refill. Absent: tenderness, pedal edema, joint swelling, calf tenderness Back exam: Present: normal inspection Neurological exam: Present: alert, oriented X3, CN II-XII intact Psychiatric exam: Present: normal affect, normal mood Skin exam: Present: warm, dry, intact, normal color. Absent: rash Course Vital Signs 07/03/22 07/03/22 07/03/22 17:23 17:45 18:15 Temperature 98.6 F 98.3 F Pulse Rate 75 65 Pulse Rate [ 65 Pulse Oximetery ] Respiratory 19 18 Rate Blood Pressure 120/73 123/73 O2 Sat by Pulse 97 97 Oximetry Chest Pain MDM - [facility] Patient with substernal chest pain relieved with nitroglycerin at home with known CAD. No chest pain or shortness of breath at this time. Will check a chest x-ray, EKG, CMP, CBC, troponin along with magnesium level. 2 baby aspirins taken today will give additional 2 more for a total 325 mg of aspirin today. Will ap ply Nitropaste 1 inch to prevent recurrence of chest pain. EKG shows sinus rhythm with inferior myocardial show infarct indeterminate age likely old. Discussed with patient given typical chest pain relieved with nitroglycerin will plan for observation admission. Patient's primary care provider not local will contact [facility] emergency department physician for city call observation admission after results of laboratory studies. Patient currently resting comfortably in chest pain-free. Troponin elevated at 0.152. Dr. Watts with cardiology called notified regarding non-STEMI with previous PCI and stenting to his RCA in May [address] MITCH Almodovar. Will start on a heparin drip per protocol and placed on [address] Watts's request will order a home medications. Case discussed with Dr Mabel lane physicians for [facility] call accepting admission. Case discussed with Dr. Metcalf. Disposition Clinical Impression: Acute non-ST elevation myocardial infarction (NSTEMI) Disposition: ADMITTED IP TO THIS HOSP Condition: Stable Is patient prescribed a controlled substance at d/c from ED?: No Referrals: Grant Bartlett MD [STAFF PHYSICIAN] - 1-2 days Time of Disposition: 19:21
--- NOTE | 2022-07-03 17:56 | XR ---
EXAMINATION TYPE: XR chest 2V DATE OF EXAM: 07/03/2022 5:46 PM COMPARISON: None TECHNIQUE: XR chest 2V . CLINICAL INDICATION:Male, 67 years old with history of Chest Pain; FINDINGS: Lungs/Pleura: There is no evidence of pleural effusion, focal consolidation, or pneumothorax. Pulmonary vascularity: Unremarkable. Heart/mediastinum: Cardiomediastinal silhouette is unremarkable. Postoperative changes are present i n the mediastinum. Musculoskeletal: No acute osseous pathology. Midline sternotomy wires are noted and stable. IMPRESSION: No acute cardiopulmonary disease/process.
[2022-07-03 18:02] LABS: Basophils % (A) 1 %; Eosinophils # (A) 0.2 k/uL (0-0.7); Eosinophils % (A) 3 %; HCT 45.5 % (39.0-53.0); HGB 14.8 gm/dL (13.0-17.5); Lymphocytes % (A) 16 %; MCH 30.7 pg (25.0-35.0); MCHC 32.6 g/dL (31.0-37.0); MCV 94.2 fL (80.0-100.0); Mean Platelet Volume 8.8; Monocytes # (A) 0.6 k/uL (0-1.0); Monocytes % (A) 10 %; Neutrophils # (A) 4.2 k/uL (1.3-7.7); Neutrophils % (A) 69 %; Platelet Count 149 k/uL (150-450); RBC 4.83 m/uL (4.30-5.90); WBC 6.1 k/uL (3.8-10.6)
[2022-07-03] MEDS ORDERED: ASPIRIN 81 MG PO STA (18:08)
[2022-07-03] MEDS ORDERED: NITROGLYCERIN OINT 1 INCH/GM PACKET TOPICAL STA (18:08)
[2022-07-03 18:18] LABS: INR 1.1 (<1.2); Partial Thromboplastin Time 28.5 sec (22.0-30.0); Prothrombin Time 11.8 sec (9.0-12.0)
[2022-07-03] MEDS ORDERED: HEPARIN SODIUM 1,000 UN/ML (10ML VL) IV PRN (18:42)
[2022-07-03] MEDS ORDERED: HEPARIN SODIUM 1,000 UN/ML (10ML VL) IV ONE (18:42)
[2022-07-03] MEDS ORDERED: NITROGLYCERIN SL TABS 0.4 MG TAB SUBLINGUAL PRN (18:42)
[2022-07-03] MEDS: HEPARIN SOD,PORK IN 0.45% NACL 25,000 UNIT in 0.45% NACL 1 250ML.BAG IV SCH (20:11)
[2022-07-03] MEDS: LOSARTAN 50 MG TAB PO SCH (20:22)
[2022-07-03] MEDS ORDERED: ATORVASTATIN 40 MG TAB PO SCH (21:00)
--- NOTE | 2022-07-03 21:10 | P.HPIM ---
History of Present Illness H&P Date: 07/03/22 The patient is a 67-year-old male with a PMH of coronary artery disease status post STEMI and stent in 05/2020, hypertension, and COPD who now presents to the emergency room with complaints of chest pain. The patient reports that he was in his usual state of health until earlier today when he suddenly developed substernal pressure-like chest discomfort at around noon. The pain subsequently resolved with sublingual nitroglycerin but then recurred at 3 PM and was more persistent. The pain was 7 out of 10 on maximal intensity, nonradiating, with associated shortness of breath. Reports that the pain lasted for about an hour and a half and resolved spontaneously. He denied experiencing lower extremity swelling or pain, denied recent travel, denied fever, chills, cough. Reports that the pain was similar nature to when he had his prior MIs. Reports feeling at his baseline at the time of interview. EKG in emergency room reveal sinus rhythm at 71 bpm with inferior Q waves and poor R-wave progression. Chest x-ray was unremarkable. Laboratory evaluation was remarkable for troponin of 0.152 and platelets 149. Review of systems: Pertinent positives and negatives as discussed in HPI, a complete review of systems was performed and all other systems are negative. Physical examination: General: non toxic, no distress, appears at stated age, overweight Derm: no unusual rashes/lesions, warm Head: atraumatic, normocephalic, symmetric Eyes: EOMI, no lid lag, anicteric sclera, pupils equal round reactive to light ENT: Nose and ears atraumatic Neck: No cervical lymphadenopathy, trachea midline, supple Mouth: no lip lesion, mucus membranes moist Cardiovascular: S1S2 reg, no murmur, positive dorsalis pedis pulse bilateral, no edema Lungs: CTA bilateral, no rhonchi, no rales, no accessory muscle use Abdominal: soft, nontender to palpation, no guarding Ext: muscle strength 5 out of 5 in all 4 extremities grossly, no gross muscle atrophy, no contractures, Neuro: CN II-XI grossly intact, no gross focal neuro deficits Psych: Alert, oriented, appropriate affect Assessment/plan Non-ST elevation TN -Continue with heparin infusion, aspirin, statin -Cardiology consult -Cardiac monitoring -Trend troponin Thrombocytopenia, borderline -Similar to baseline Chronic conditions: Hypertension -Continue home meds DVT prophylaxis -Heparin infusion The patient is admitted with an anticipated greater than 2 midnight stay for evaluation of non-ST elevation TN. CODE STATUS: Full Code Discussed with: Patient Anticipated discharge date: 07/[address]: Home Past Medical History Past Medical History: Hypertension, Myocardial Infarction ([place]) Last Myocardial Infarction Date:: unknown History of Any Multi-Drug Resistant Organisms: None Reported Past Surgical History: Coronary Bypass/CABG, Heart Catheterization With Stent Additional Past Surgical History / Comment(s): 2004 4 vessel Date of Last Stent Placement:: 2003 Past Psychological History: No Psychological Hx Reported Smoking Status: Current every day smoker Past Alcohol Use History: Occasional Past Drug Use History: None Reported - Past Family History Mother Family Medical History: Cancer Medications and Allergies Home Medications Medication Instructions Recorded Confirmed Type Albuterol Inhaler [Ventolin Hfa 2 puff INHALATION RT-QID PRN #1 06/06/20 07/03/22 Rx Inhaler] inhaler Aspirin 81 mg PO DAILY #30 chew 06/06/20 07/03/22 Rx Clopidogrel [Plavix] 75 mg PO DAILY #30 tab 06/06/20 07/03/22 Rx Losartan [Cozaar] 50 mg PO DAILY #50 tab 06/06/20 07/03/22 Rx Atorvastatin Calcium [Lipitor] 40 mg PO DAILY 07/03/22 07/03/22 History Metoprolol Tartrate [Lopressor] 12.5 mg PO DAILY 07/03/22 07/03/22 History Allergies Allergy/AdvReac Type Severity Reaction Status Date / Time Penicillins Allergy Unknown Verified 07/03/22 19:18 Childhood Physical Exam Vitals: Vital Signs Temp Pulse Pulse Resp BP Pulse Ox 07/03/22 20:40 69 19 109/66 96 07/03/22 20:30 77 11 L 109/66 95 07/03/22 20:20 70 14 109/66 95 07/03/22 20:10 62 17 109/66 96 07/03/22 20:00 64 8 L 105/72 96 07/03/22 19:50 60 14 105/72 96 07/03/22 19:40 66 13 105/72 96 07/03/22 19:30 64 16 105/72 96 07/03/22 19:20 64 10 L 105/72 94 L 07/03/22 19:10 66 19 105/72 95 07/03/22 19:00 64 10 L 123/73 95 07/03/22 18:50 65 20 123/73 96 07/03/22 18:40 63 15 123/73 96 07/03/22 18:30 64 12 123/73 96 07/03/22 18:20 63 23 123/73 97 07/03/22 18:15 98.3 F 65 18 123/73 97 07/03/22 18:10 62 19 97 07/03/22 17:45 65 07/03/22 17:23 98.6 F 75 19 120/73 97 Intake and Output 07/03/22 07/03/22 07/03/22 06:59 14:59 22:59 Other: Weight 76.657 kg Results CBC & Chem 7: 07/03/22 17:00 07/03/22 17:31 Labs: Abnormal Lab Results - Last 24 Hours (Table) 07/03/22 07/03/22 07/03/22 Range/Units 17:00 17:00 17:31 Plt Count 149 L (150-450) k/uL Sodium 135 L (137-145) mmol/L Carbon Dioxide 21 L (22-30) mmol/L Creatinine 0.57 L (0.66-1.25) mg/dL Glucose 130 H (74-99) mg/dL Troponin I 0.152 H* (0.000-0.034) ng/mL 07/03/22 Range/Units 19:17 Plt Count (150-450) k/uL Sodium (137-145) mmol/L Carbon Dioxide (22-30) mmol/L Creatinine (0.66-1.25) mg/dL Glucose (74-99) mg/dL Troponin I 0.192 H* (0.000-0.034) ng/mL
[2022-07-03] MEDS: METOPROLOL TARTRATE 25 MG TAB PO SCH (21:26)
[2022-07-04 02:45] LABS: Basophils % (A) 1 %; Eosinophils # (A) 0.2 k/uL (0-0.7); Eosinophils % (A) 4 %; HCT 43.9 % (39.0-53.0); HGB 14.5 gm/dL (13.0-17.5); Lymphocytes # (A) 1.1 k/uL (1.0-4.8); Lymphocytes % (A) 22 %; MCHC 33.1 g/dL (31.0-37.0); MCV 96.8 fL (80.0-100.0); Mean Platelet Volume 8.8; Monocytes # (A) 0.5 k/uL (0-1.0); Monocytes % (A) 9 %; Neutrophils # (A) 3.2 k/uL (1.3-7.7); Neutrophils % (A) 63 %; Platelet Count 123 k/uL (150-450); RBC 4.54 m/uL (4.30-5.90); RDW 12.6 % (11.5-15.5); WBC 5.1 k/uL (3.8-10.6)
[2022-07-04 02:46] LABS: Mean Platelet Volume 8.6; Platelet Count 125 k/uL (150-450)
[2022-07-04] MEDS ORDERED: CLOPIDOGREL 75 MG TAB PO SCH (09:00)
--- NOTE | 2022-07-04 09:01 | P.CRDCN ---
History of Present Illness History of present illness: HISTORY OF PRESENTING ILLNESS This is a pleasant 67-year-old with past medical history significant for CAD and CABG with 4 bypasses including OLIVERA to LAD, SVG to RCA, SVG to diagonal branch a nd SVG to OM. In May 2020 he underwent heart catheterization with total occlusion of RCA as well as LAD with the SVG to RCA having a 99% stenosis with patent OLIVERA to LAD, patent SVG to circumflex, patent SVG to the diagonal branch patent. He underwent successful PCI of the SVG to RCA. Her cardiogram at that time showed EF 35-40%. He states that over last 2-3 days he has been having off-and-on chest pain which is worse with exertion and feels similar to his prior angina. He denies any recent fevers, chills, cough. Denies any recent changes to his medications. He is still smoking. Currently he is chest pain- free. DIAGNOSTICS EKG shows normal sinus rhythm, Q waves inferiorly, mild T-wave inversions in the inferior and lateral leads. Blood work shows troponin 0.15, 0.19, 0.24 REVIEW OF SYSTEMS At the time of my exam: CONSTITUTIONAL: Denies fever or chills. CARDIOVASCULAR: +chest pain, no shortness of breath, orthopnea, PND or palpitations. RESPIRATORY: Denies cough. GASTROINTESTINAL: Denies abdominal pain, diarrhea, constipation, nausea or vomiting. MUSCULOSKELETAL: Denies myalgias. NEUROLOGIC: Denies numbness, tingling or weakness. ENDOCRINE: Denies fatigue, weight change, polydipsia or polyurina. GENITOURINARY: Denies burning, hematuria or urgency with micturation. HEMATOLOGIC: Denies history of anemia or bleeding. PHYSICAL EXAMINATION Vital signs reviewed. CONSTITUTIONAL: No apparent distress. HEENT: Head is normocephalic. Pupils are equal, round. Sclerae anicteric. Mucous membranes of the mouth are moist. No JVD. No carotid bruit. CHEST EXAMINATION: Lungs are clear to auscultation. No chest wall tenderness is noted on palpation or with deep breathing. HEART EXAMINATION: Regular rate and rhythm. S1, S2 heard. No murmurs, gallops or rub. ABDOMEN: Soft, nontender. Positive bowel sounds. EXTREMITIES: 2+ peripheral pulses, no lower extremity edema and no calf tenderness. NEUROLOGIC EXAMINATION: Patient is awake, alert and oriented x3. ASSESSMENT 1. Non-STEMI appears type I mechanism 2. CAD with prior history of CABG with recent catheterization 05/2020 showing patent SVG to diagonal, SVG to circumflex, OLIVERA to LAD and had undergone PCI of SVG to RCA 3. Hypertension 4. Ischemic cardiomyopathy EF 35-40% previously 5. Chronic systolic heart failure appears euvolemic 6. Tobacco abuse PLAN Patient already on dual antiplatelets and we will continue with heparin drip. Currently is chest pain-free. Check 2-D echo. Discussed risks and benefits of heart catheterization and patient is agreeable. Further recommendations to follow. Past Medical History Past Medical History: Hypertension, Myocardial Infarction ([place]) Last Myocardial Infarction Date:: unknown History of Any Multi-Drug Resistant Organisms: None Reported Past Surgical History: Coronary Bypass/CABG, Heart Catheterization With Stent Additional Past Surgical History / Comment(s): 2004 4 vessel Date of Last Stent Placement:: 2003 Past Psychological History: No Psychological Hx Reported Smoking Status: Current every day smoker Past Alcohol Use History: Occasional Past Drug Use History: None Reported - Past Family History Mother Family Medical History: Cancer Medications and Allergies Home Medications Medication Instructions Recorded Confirmed Type Albuterol Inhaler [Ventolin Hfa 2 puff INHALATION RT-QID PRN #1 06/06/20 07/03/22 Rx Inhaler] inhaler Aspirin 81 mg PO DAILY #30 chew 06/06/20 07/03/22 Rx Clopidogrel [Plavix] 75 mg PO DAILY #30 tab 06/06/20 07/03/22 Rx Losartan [Cozaar] 50 mg PO DAILY #50 tab 06/06/20 07/03/22 Rx Atorvastatin Calcium [Lipitor] 40 mg PO DAILY 07/03/22 07/03/22 History Metoprolol Tartrate [Lopressor] 12.5 mg PO DAILY 07/03/22 07/03/22 History Allergies Allergy/AdvReac Type Severity Reaction Status Date / Time Penicillins Allergy Unknown Verified 07/03/22 19:18 Childhood Physical Exam Vitals: Vital Signs Temp Pulse Pulse Resp BP Pulse Ox 07/04/22 05:50 98 29 H 95/46 94 L 07/04/22 05:40 68 20 95/46 94 L 07/04/22 05:30 71 26 H 95/46 95 07/04/22 05:20 78 30 H 95/46 93 L 07/04/22 05:10 70 18 95/46 92 L 07/04/22 05:00 70 21 95/62 92 L 07/04/22 04:50 72 20 95/62 93 L 07/04/22 04:40 70 18 95/62 93 L 07/04/22 04:30 67 20 95/62 93 L 07/04/22 04:20 73 22 95/62 93 L 07/04/22 04:10 68 20 95/62 90 L 07/04/22 04:00 69 17 113/62 93 L 07/04/22 03:50 68 19 113/62 92 L 07/04/22 03:40 67 17 113/62 92 L 07/04/22 03:30 67 18 113/62 94 L 07/04/22 03:20 72 18 113/62 95 07/04/22 03:10 74 20 113/62 94 L 07/04/22 03:00 73 15 103/68 93 L 07/04/22 02:50 67 19 103/68 95 07/04/22 02:40 67 16 103/68 94 L 07/04/22 02:30 66 11 L 103/68 94 L 07/04/22 02:20 66 14 103/68 95 07/04/22 02:10 73 18 103/68 95 07/04/22 02:00 62 21 103/70 94 L 07/04/22 01:50 71 13 103/70 94 L 07/04/22 01:40 67 103/70 94 L 07/04/22 01:30 68 16 103/70 93 L 07/04/22 01:20 71 22 103/70 93 L 07/04/22 01:10 107 H 103/70 93 L 07/04/22 01:00 68 18 86/47 92 L 07/04/22 00:50 65 13 86/47 94 L 07/04/22 00:40 72 18 86/47 92 L 07/04/22 00:30 70 15 86/47 93 L 07/04/22 00:20 69 18 86/47 94 L 07/04/22 00:10 68 19 86/47 94 L 07/04/22 00:00 68 21 93/54 93 L 07/03/22 23:50 67 18 93/54 94 L 07/03/22 23:40 72 20 93/54 94 L 07/03/22 23:30 21 93/54 94 L 07/03/22 23:20 66 19 93/54 95 07/03/22 23:10 67 19 93/54 94 L 07/03/22 23:03 65 29 H 93/54 95 07/03/22 23:00 65 19 107/68 95 07/03/22 22:50 65 14 107/68 96 07/03/22 22:40 62 20 107/68 96 07/03/22 22:30 65 18 107/68 94 L 07/03/22 22:20 61 19 107/68 94 L 07/03/22 22:10 61 20 107/68 96 07/03/22 22:00 62 11 L 111/64 96 07/03/22 21:50 68 30 H 111/64 95 07/03/22 21:40 80 27 H 111/64 95 07/03/22 21:30 68 21 111/64 97 07/03/22 21:20 71 18 111/64 96 07/03/22 21:10 73 22 111/64 96 07/03/22 21:00 70 25 H 109/66 96 07/03/22 20:50 68 19 109/66 97 07/03/22 20:40 69 19 109/66 96 07/03/22 20:30 77 11 L 109/66 95 07/03/22 20:20 70 14 109/66 95 07/03/22 20:10 62 17 109/66 96 07/03/22 20:00 64 8 L 105/72 96 07/03/22 19:50 60 14 105/72 96 07/03/22 19:40 66 13 105/72 96 07/03/22 19:30 64 16 105/72 96 07/03/22 19:20 64 10 L 105/72 94 L 07/03/22 19:10 66 19 105/72 95 07/03/22 19:00 64 10 L 123/73 95 07/03/22 18:50 65 20 123/73 96 07/03/22 18:40 63 15 123/73 96 07/03/22 18:30 64 12 123/73 96 07/03/22 18:20 63 23 123/73 97 07/03/22 18:15 98.3 F 65 18 123/73 97 07/03/22 18:10 62 19 97 07/03/22 17:45 65 07/03/22 17:23 98.6 F 75 19 120/73 97 Intake and Output 07/03/22 07/04/22 07/04/22 22:59 06:59 14:59 Intake Total 66.386 Balance 66.386 Intake: Intake, IV Titration 66.386 Amount Heparin Sod,Pork in 0.45% 66.386 NaCl 25,000 unit In 0.45 % NaCl 1 250ml.bag @ 12 UNITS/KG/HR 9.199 mls/hr IV .Q24H [facility] Rx#: [id number] Other: Weight 76.657 kg Results 07/04/22 02:09 07/03/22 17:31 Cardiac Enzymes 07/03/22 07/03/22 07/03/22 Range/Units 17:00 17:31 19:17 AST 39 (17-59) U/L Troponin I 0.152 H* 0.192 H* (0.000-0.034) ng/mL 07/03/22 Range/Units 22:14 AST (17-59) U/L Troponin I 0.248 H* (0.000-0.034) ng/mL Coagulation 07/03/22 07/03/22 07/04/22 Range/Units 17:00 19:17 02:09 PT 11.8 (9.0-12.0) sec APTT 28.5 26.9 73.1 H (22.0-30.0) sec CBC 07/03/22 07/04/22 07/04/22 Range/Units 17:00 02:09 02:09 WBC 6.1 5.1 (3.8-10.6) k/uL RBC 4.83 4.54 (4.30-5.90) m/uL Hgb 14.8 14.5 (13.0-17.5) gm/dL Hct 45.5 43.9 (39.0-53.0) % Plt Count 149 L 123 L 125 L (150-450) k/uL Comprehensive Metabolic Panel 07/03/22 Range/Units 17:31 Sodium 135 L (137-145) mmol/L Potassium 4.1 (3.5-5.1) mmol/L Chloride 100 (98-107) mmol/L Carbon Dioxide 21 L (22-30) mmol/L BUN 10 (9-20) mg/dL Creatinine 0.57 L (0.66-1.25) mg/dL Glucose 130 H (74-99) mg/dL Calcium 9.1 (8.4-10.2) mg/dL AST 39 (17-59) U/L ALT 45 (4-49) U/L Alkaline Phosphatase 88 (38-126) U/L Total Protein 7.2 (6.3-8.2) g/dL Albumin 4.2 (3.5-5.0) g/dL Current Medications Generic Name Dose Route Start Last Admin Trade Name Freq PRN Reason Stop Dose Admin Atorvastatin Calcium 80 mg 07/04/22 21:00 Atorvastatin 80 Mg Tab PO HS [facility] Clopidogrel Bisulfate 75 mg 07/04/22 09:00 Clopidogrel 75 Mg Tab PO DAILY [facility] Heparin Sodium (Porcine) 0 unit 07/03/22 18:42 Heparin Sodium 1,000 Un/Ml (10ml Vl) IV Q6HR PRN Low PTT Protocol Heparin Sodium/Sodium Chloride 250 mls @ 9.199 mls/hr 07/03/22 18:45 07/04/22 03:24 25,000 unit/ Sodium Chloride IV 10 units/kg/hr .Q24H [facility] 7.666 mls/hr Titration Protocol 12 UNITS/KG/HR Losartan Potassium 50 mg 07/03/22 19:00 07/03/22 20:22 Losartan 50 Mg Tab PO Not Given DAILY [facility] Metoprolol Tartrate 25 mg 07/03/22 21:00 07/03/22 21:26 Metoprolol Tartrate 25 Mg Tab PO 12.5 mg BID [facility] Administration Nitroglycerin 0.4 mg 07/03/22 18:42 Nitroglycerin Sl Tabs 0.4 Mg Tab SUBLINGUAL Q5M PRN Chest Pain Intake and Output 07/03/22 07/04/22 07/04/22 22:59 06:59 14:59 Intake Total 66.386 Balance 66.386 Intake: Intake, IV Titration 66.386 Amount Heparin Sod,Pork in 0.45% 66.386 NaCl 25,000 unit In 0.45 % NaCl 1 250ml.bag @ 12 UNITS/KG/HR 9.199 mls/hr IV .Q24H [facility] Rx#: [id number] Other: Weight 76.657 kg 07/04/22 02:09 07/03/22 17:31
[2022-07-04] MEDS: LOSARTAN 50 MG TAB PO SCH (09:25)
[2022-07-04] MEDS: METOPROLOL TARTRATE 25 MG TAB PO SCH (09:25)
[2022-07-04 09:59] LABS: Chol/HDL Ratio 3.48 Ratio; VLDL Calculation 16.96 mg/dL (5.00-40.00)
--- NOTE | 2022-07-04 10:21 | P.PN ---
Subjective Progress Note Date: 07/04/22 Principal diagnosis: Non-ST elevation MA Patient this morning is denying any chest pain. He states that he spoke with cardiology with told and the plan is for heart catheterization. Also confirmed this with the nurse. Objective - Vital Signs Vital signs: Vital Signs Temp 98.3 F 07/03/22 18:15 Pulse 98 07/04/22 05:50 Resp 29 H 07/04/22 05:50 BP 95/46 07/04/22 05:50 Pulse Ox 94 L 07/04/22 05:50 FiO2 Intake & Output 07/03/22 07/04/22 07/04/22 18:59 06:59 18:59 Intake Total 66.386 49.19 Balance 66.386 49.19 Weight 76.657 kg Intake: Intake, IV Titration 66.386 49.19 Amount Heparin Sod,Pork in 0.45% 66.386 49.19 NaCl 25,000 unit In 0.45 % NaCl 1 250ml.bag @ 12 UNITS/KG/HR 9.199 mls/hr IV .Q24H [facility] Rx#: [id number] - Exam General examination - Alert and Oriented 3 in NAD Heart - + S1S2 no murmurs Lungs - Clear to auscultation Abdomen soft NT ND +ve BS Extremities - No edema [employer] - Moving all 4 extremities spontaneously Psych - Calm and cooperative - Labs CBC & Chem 7: 07/04/22 02:09 07/03/22 17:31 Labs: Abnormal Lab Results - Last 24 Hours (Table) 07/03/22 07/03/22 07/03/22 Range/Units 17:00 17:00 17:31 Plt Count 149 L (150-450) k/uL APTT (22.0-30.0) sec Sodium 135 L (137-145) mmol/L Carbon Dioxide 21 L (22-30) mmol/L Creatinine 0.57 L (0.66-1.25) mg/dL Glucose 130 H (74-99) mg/dL Troponin I 0.152 H* (0.000-0.034) ng/mL HDL Cholesterol (40.00-60.00) mg/dL 07/03/22 07/03/22 07/04/22 Range/Units 19:17 22:14 02:09 Plt Count 123 L (150-450) k/uL APTT (22.0-30.0) sec Sodium (137-145) mmol/L Carbon Dioxide (22-30) mmol/L Creatinine (0.66-1.25) mg/dL Glucose (74-99) mg/dL Troponin I 0.192 H* 0.248 H* (0.000-0.034) ng/mL HDL Cholesterol (40.00-60.00) mg/dL 07/04/22 07/04/22 07/04/22 Range/Units 02:09 02:09 02:09 Plt Count 125 L (150-450) k/uL APTT 73.1 H (22.0-30.0) sec Sodium (137-145) mmol/L Carbon Dioxide (22-30) mmol/L Creatinine (0.66-1.25) mg/dL Glucose (74-99) mg/dL Troponin I (0.000-0.034) ng/mL HDL Cholesterol 33.00 L (40.00-60.00) mg/dL 07/04/22 Range/Units 09:20 Plt Count (150-450) k/uL APTT 58.0 H (22.0-30.0) sec Sodium (137-145) mmol/L Carbon Dioxide (22-30) mmol/L Creatinine (0.66-1.25) mg/dL Glucose (74-99) mg/dL Troponin I (0.000-0.034) ng/mL HDL Cholesterol (40.00-60.00) mg/dL Assessment and Plan Assessment: Non-ST elevation MA Ischemic cardiomyopathy with an EF of 35-40% -Continue with IV heparin drip, aspirin statin -Troponins are increasing -Plan is for heart catheterization today -Patient currently denying chest pain Check echocardiogram Thrombocytopenia -Platelets at baseline Chronic conditions: Hypertension -Resume home meds DVT prophylaxis: Heparin infusion CODE STATUS: Full Code Discussed with: Patient Anticipated discharge date: 07/[address]: Home
[2022-07-04] MEDS ORDERED: HEPARIN SODIUM 1,000 UN/ML (10ML VL) ONE (11:03)
[2022-07-04] MEDS ORDERED: IV FLUID CONTINUATION 950 ML IV ONE (11:14)
[2022-07-04] MEDS ORDERED: LIDOCAINE 1% INJ 10MG/ML (30 ML VIAL-PF) SQ ONE ×2 (11:15→11:21)
[2022-07-04] MEDS: MIDAZOLAM 2 MG/2 ML VIAL IV ONE ×2 (11:15→11:25)
[2022-07-04] MEDS ORDERED: HEPARIN SODIUM 1,000 UN/ML (10ML VL) IV ONE (11:43)
[2022-07-04] MEDS ORDERED: IOPAMIDOL-370 100ML BTL INJ ONE ×3 (11:46→12:15)
[2022-07-04] MEDS ORDERED: TIROFIBAN 12.5MG-250ML NS 250 ML IV ONE (11:53)
[2022-07-04] MEDS ORDERED: CLOPIDOGREL 75 MG TAB ONE (12:00)
[2022-07-04] MEDS ORDERED: CLOPIDOGREL 75 MG TAB PO ONE (12:09)
[2022-07-04] MEDS ORDERED: MAG HYDROX/AL HYDROX/SIMETH 30 ML CUP PO PRN (12:49)
[2022-07-04] MEDS ORDERED: RX INFO: IV CONTRAST WAS GIVEN 1 EACH MISC MISCELLANE PRN (12:51)
[2022-07-04] MEDS ORDERED: ZOLPIDEM 5 MG TAB PO PRN (12:55)
[2022-07-04] MEDS ORDERED: ACETAMINOPHEN TAB 325 MG TAB PO PRN (12:55)
[2022-07-04] MEDS ORDERED: ATROPINE SULFATE 0.1 MG/ML 10ML SYRINGE IV PRN (12:55)
[2022-07-04] MEDS ORDERED: ALBUTEROL NEBULIZED 2.5 MG/3 ML INHALATION PRN (12:57)
[2022-07-04 16:49] LABS: Glucose,Whole Blood 117 mg/dL (70-110)
[2022-07-04] MEDS: HEPARIN SOD,PORK IN 0.45% NACL 25,000 UNIT in 0.45% NACL 1 250ML.BAG IV SCH (17:09)
[2022-07-04] MEDS: SODIUM CHLORIDE 0.9% 1,000 ML IV SCH (17:11)
[2022-07-04 20:08] LABS: Glucose,Whole Blood 113 mg/dL (70-110)
[2022-07-04] MEDS ORDERED: ATORVASTATIN 80 MG TAB PO SCH (21:00)
--- NOTE | 2022-07-04 22:56 | CC ---
CARDIAC CATHETERIZATION REPORT PROCEDURES PERFORMED: 1. Left heart catheterization and coronary angiography. 2. Selective injection of the bypass grafts. 3. PTCA and stenting of vein graft to the RCA in the body of the graft with 2 drug- eluting stents. PERFORMED BY: Dr. Kojo Almodovar. SEDATION: Moderate conscious sedation time was 58 minutes. The patient was administered Versed. Oxygen saturation, hemodynamics, and EKG were monitored closely. CLINICAL INFORMATION: This is a 67-year-old gentleman with the history of hypertension, hyperlipidemia, smoking, COPD, and known CAD with a prior bypass surgery in 2006 also at [facility]. He had 3 vein grafts and a left internal mammary artery graft to LAD. In 2019, I performed a cardiac cath on this patient because of an acute inferior ST- elevation PR and performed stenting of vein graft to the RCA in the body as well as the PDA branch with a drug-eluting stent with excellent result. He continues to smoke, but has been compliant with medications, comes into the hospital with chest pain suggestive of angina. Elevated troponin was noted. Cardiac cath was advised after due discussion regarding risks, benefits and options. PROCEDURE NOTE: Under local anesthesia and strict aseptic precautions, a 6-Cambodian introducer was placed in the right femoral artery. There was a small hematoma. I used a standard left Miguel catheter to perform selective coronary angiography of the left system. A right catheter was used to perform selective coronary angiography of the vein graft to the RCA, creek RCA, vein graft to the obtuse marginal, and vein graft to the diagonal. I did not do a OLIVERA injection this time. I checked LV pressures using a pigtail catheter. I performed PCI of the vein graft to RCA, which had a 99% stenosis within the body beyond the previous stented area. The patient received Aggrastat bolus and infusion as well as heparin, and ACT was 372. An Angio-Seal device was used to secure hemostasis and the patient was sent to the room in stable condition with a FemoStop because of a small hematoma. Excellent angiographic result was achieved, and results were discussed with the patient and his girlfriend. Advised to quit smoking. Same medications. He will be on dual antiplatelet therapy with Plavix and aspirin for 12 months without interruption. CARDIAC CATHETERIZATION FINDINGS: The left main coronary artery has a calcified lesion of about 60%. The creek LAD is totally occluded, the circumflex marginal has a 70% lesion. OM is totally occluded. [place] RCA is 100% occluded. Vein graft to the RCA has a 99% lesion within the body of the graft in the midportion, which is the culprit lesion. The vein graft to the obtuse marginal and vein graft to the first diagonal are widely patent with good flow. OLIVERA was not injected. Filling pressures are normal with an LV end-diastolic pressure of about 8 to 10 mmHg without any gradient across aortic valve. CORONARY ANGIOGRAPHY FINDINGS: LEFT MAIN CORONARY ARTERY: This has about 60% distal lesion calcified with good flow. LEFT ANTERIOR DESCENDING CORONARY ARTERY: Totally occluded after diagonal and septal branch. LEFT POSTERIOR CIRCUMFLEX CORONARY ARTERY: This vessel runs in the AV groove. Obtuse marginal branch is occluded. RIGHT CORONARY ARTERY: This vessel is totally occluded without antegrade flow. SAPHENOUS VEIN GRAFT TO THE RCA: This graft has a 99% body lesion, which is the culprit lesion within the previously stented segment. There is an ectatic area beyond the stenosis. Flow is sluggish. SAPHENOUS VEIN GRAFT TO THE OBTUSE MARGINAL: Small graft, no significant disease and opacifies the circumflex. SAPHENOUS VEIN GRAFT TO THE DIAGONAL BRANCH: This graft is widely patent with good flow. No significant disease in the diagonal. The OLIVERA was not injected. RECOMMENDATIONS: I recommended PCI of RCA graft and proceeded to perform in the same setting. PCI PROCEDURE DETAILS: The patient received 300 mg of Plavix orally. He also received Aggrastat bolus and infusion as per protocol. ACT was 372. I used a standard right Miguel catheter and pre-dilated the 99% lesion with a 3.0 caliber NC Trek balloon. I deployed a 4.0 caliber 15 mm stent within the 99% stenosis and proximal to it, there was another area of narrowing. I deployed another 15 mm long 4.0 stent. Both these stents were dilated with a 4.0 NC Trek balloon, and I also dilated the entire vein graft body with a 4.0 vessel. I gave a nicardipine bolus intracoronary. Excellent angiographic result was achieved without complication. Results were discussed with the patient and his girlfriend. Advised to quit smoking. The sheath was taken out and Angio-Seal device was used to secure hemostasis. A FemoStop was applied for hematoma. The patient was sent to the room in a stable condition. FemoStop will be on for 4 hours. Excellent angiographic result without complication was achieved. A 12-month antiplatelet therapy with aspirin and Plavix was advised. He will also have Aggrastat infusion until 11 p.m. jose. SHOLA / LYLE: [id number] /
[2022-07-05] MEDS: SODIUM CHLORIDE 0.9% 1,000 ML IV SCH (04:14)
[2022-07-05 07:10] LABS: Basophils % (A) 0 %; Eosinophils # (A) 0.1 k/uL (0-0.7); Eosinophils % (A) 3 %; HCT 42.4 % (39.0-53.0); HGB 13.6 gm/dL (13.0-17.5); Lymphocytes # (A) 0.8 k/uL (1.0-4.8); Lymphocytes % (A) 17 %; MCH 30.4 pg (25.0-35.0); Monocytes # (A) 0.5 k/uL (0-1.0); Monocytes % (A) 10 %; Neutrophils # (A) 3.4 k/uL (1.3-7.7); Neutrophils % (A) 69 %; Platelet Count 123 k/uL (150-450); RBC 4.46 m/uL (4.30-5.90); RDW 12.1 % (11.5-15.5); WBC 4.9 k/uL (3.8-10.6)
[2022-07-05 08:23] LABS: African American GFR (CKD) >90 (>60 ml/min/1.73 sqM); Anion Gap 8 mmol/L; Blood Urea Nitrogen 9 mg/dL (9-20); Carbon Dioxide 24 mmol/L (22-30); Chloride 105 mmol/L (98-107); Glucose 88 mg/dL (74-99); Non-African American GFR(CKD) >90 (>60 ml/min/1.73 sqM); Potassium 3.9 mmol/L (3.5-5.1); Sodium 137 mmol/L (137-145)
[2022-07-05] MEDS: LOSARTAN 50 MG TAB PO SCH (08:34)
[2022-07-05] MEDS ORDERED: ATORVASTATIN 40 MG TAB PO SCH (09:00)
[2022-07-05] MEDS ORDERED: ASPIRIN 81 MG PO SCH (09:00)
[2022-07-05] MEDS ORDERED: METOPROLOL TARTRATE 12.5 MG TAB PO SCH (09:00)
[2022-07-05] MEDS ORDERED: CLOPIDOGREL 75 MG TAB PO SCH (09:00)
[2022-07-05 09:36] VITALS: RESP 20
[2022-07-05 11:32] VITALS: BP 127/64; PULSE 55; TEMP 97.8
--- NOTE | 2022-07-05 12:51 | P.DS ---
Providers Date of admission: 07/03/22 18:34 Expected date of discharge: 07/05/22 Attending physician: Cindi Monroe MD Consults: 07/03/22 18:42 Consult Physician Urgent Consulting Provider: Bijan Watts Consult Reason/Comments: NSTEMI Do you want consulting provider notified?: Already Contacted Primary care physician: Angel Nunez [place] [facility] Course: 67-year-old male with a PMH of coronary artery disease status post STEMI and stent in 05/2020, hypertension, and COPD who presented to the emergency room with complaints of chest pain. The pain was 7 out of 10 on maximal intensity, nonradiating, with associated shortness of breath. Denied experiencing lower extremity swelling or pain, denied recent travel, denied fever, chills, cough. Reports that the pain was similar nature to when he had his prior MIs. EKG in emergency room reveal sinus rhythm at 71 bpm with inferior Q waves and poor R-wave progression. Chest x-ray was unremarkable. Laboratory evaluation was remarkable for troponin of 0.152 and platelets 149. He was initiated on heparin drip and admitted to our service. After admission his troponin started trending up, he was seen by cardiology and had a heart catheterization with PCI of one of the vein grafts and 2 stent placements. He did well after the heart catheterization, currently denying having any chest pain. He had an echocardiogram that showed known low EF secondary to ischemic cardio myopathy at 35-40%. He was resumed on dual antiplatelet therapy. Today he was cleared by cardiology for discharge. He will be discharged in a stable condition. Patient Condition at Discharge: Stable Plan - Discharge Summary Discharge Rx Participant: Yes New Discharge Prescriptions: Continue Aspirin 81 mg PO DAILY #30 chew Losartan [Cozaar] 50 mg PO DAILY #50 tab Clopidogrel [Plavix] 75 mg PO DAILY #30 tab Albuterol Inhaler [Ventolin Hfa Inhaler] 2 puff INHALATION RT-QID PRN #1 inhaler PRN Reason: Shortness Of Breath Metoprolol Tartrate [Lopressor] 12.5 mg PO DAILY Atorvastatin Calcium [Lipitor] 40 mg PO DAILY Discharge Medication List Albuterol Inhaler [Ventolin Hfa Inhaler] 2 puff INHALATION RT-QID PRN #1 inhaler 06/06/20 [Rx] Aspirin 81 mg PO DAILY #30 chew 06/06/20 [Rx] Clopidogrel [Plavix] 75 mg PO DAILY #30 tab 06/06/20 [Rx] Losartan [Cozaar] 50 mg PO DAILY #50 tab 06/06/20 [Rx] Atorvastatin Calcium [Lipitor] 40 mg PO DAILY 07/03/22 [History] Metoprolol Tartrate [Lopressor] 12.5 mg PO DAILY 07/03/22 [History] Follow up Appointment(s)/Referral(s): Grant Bartlett MD [STAFF PHYSICIAN] - 1-2 days Patient Instructions/Handouts: Chest Pain (ED)
--- NOTE | 2022-07-05 13:56 | P.PN ---
Subjective Progress Note Date: 07/05/22 HISTORY OF PRESENT ILLNESS: This is a pleasant 67-year-old with past medical history significant for CAD and CABG with 4 bypasses including OLIVERA to LAD, SVG to RCA, SVG to diagonal branch and SVG to OM. In May 2020 he underwent heart catheterization with total occlusion of RCA as well as LAD with the SVG to RCA having a 99% stenosis with patent OLIVERA to LAD, patent SVG to circumflex, patent SVG to the diagonal branch patent. He underwent successful PCI of the SVG to RCA. Her cardiogram at that time showed EF 35-40%. He states that over last 2-3 days he has been having of f-and-on chest pain which is worse with exertion and feels similar to his prior angina. He denies any recent fevers, chills, cough. Denies any recent changes to his medications. He is still smoking. Currently he is chest pain-free. DIAGNOSTICS EKG shows normal sinus rhythm, Q waves inferiorly, mild T-wave inversions in the inferior and lateral leads. Blood work shows troponin 0.15, 0.19, 0.24 07/05/2022 Patient is status post cardiac catheterization with Dr. Almodovar. Patient underwent stenting of vein graft to the RCA with 2 drug-eluting stents. Patient examined this morning at the bedside. Patient denies any chest pain or pressure. He denies shortness of breath. Right groin is soft. No hematoma noted. Vital signs are stable. PHYSICAL EXAM: VITAL SIGNS: Reviewed. GENERAL: Well-developed in no acute distress. NECK: Supple. No JVD or thyromegaly LUNGS: Respirations even and unlabored. Lungs essentially clear to auscultation bilaterally. HEART: Regular rate and rhythm. S1 and S2 heard. EXTREMITIES: Normal range of motion. No clubbing or cyanosis. Peripheral pulses intact. No lower extremity edema ASSESSMENT: 1. Non-STEMI appears type I mechanism 2. CAD with prior history of CABG with recent catheterization 05/2020 showing patent SVG to diagonal, SVG to circumflex, OLIVERA to LAD and had undergone PCI of SVG to RCA 3. Hypertension 4. Ischemic cardiomyopathy EF 35-40% previously 5. Chronic systolic heart failure appears euvolemic 6. Tobacco abuse PLAN: Continue dual antiplatelet therapy Continue additional cardiac medications Patient is stable for discharge home today with close outpatient follow-up Nurse practitioner note has been reviewed by physician. Signing provider agrees with the documented findings, assessment, and plan of care. Objective - Vital Signs Vital signs: Vital Signs Temp 97.8 F 07/05/22 11:31 Pulse 55 L 07/05/22 11:31 Resp 20 07/05/22 11:31 BP 127/64 07/05/22 11:31 Pulse Ox 95 07/05/22 11:31 FiO2 Intake & Output 07/04/22 07/05/22 07/05/22 18:59 06:59 18:59 Intake Total 616.19 Output Total 150 1200 Balance 466.19 -1200 Weight 76.657 kg Intake: IV 345 Intake, IV Titration 49.19 Amount Heparin Sod,Pork in 0.45% 49.19 NaCl 25,000 unit In 0.45 % NaCl 1 250ml.bag @ 12 UNITS/KG/HR 9.199 mls/hr IV .Q24H [facility] Rx#: [id number] Oral 222 Output: Urine 150 1200 Other: Voiding Method Toilet Urinal # Voids 1 - Labs CBC & Chem 7: 07/05/22 06:41 07/05/22 06:41 Labs: Abnormal Lab Results - Last 24 Hours (Table) 07/04/22 07/04/22 07/04/22 Range/Units 15:58 16:28 20:06 Plt Count (150-450) k/uL Lymphocytes # (1.0-4.8) k/uL APTT 44.0 H (22.0-30.0) sec Creatinine (0.66-1.25) mg/dL POC Glucose (mg/dL) 117 H 113 H (70-110) mg/dL Calcium (8.4-10.2) mg/dL 07/05/22 07/05/22 Range/Units 06:41 06:41 Plt Count 123 L (150-450) k/uL Lymphocytes # 0.8 L (1.0-4.8) k/uL APTT (22.0-30.0) sec Creatinine 0.56 L (0.66-1.25) mg/dL POC Glucose (mg/dL) (70-110) mg/dL Calcium 8.0 L (8.4-10.2) mg/dL
== END 2022-07-05 16:44 | disposition home health service (06) | DRG 247 ==
LOC: EC 16:49 → 3SCARD 18:34
PROVIDERS: ADMIT Internal Medicine; ATTEND Internal Medicine
PROC: B2131ZZ Fluoroscopy of Multiple Coronary Artery Bypass Grafts using Low Osmolar Contrast (ICD-10-PCS; 2022-07-04)
PROC: B2111ZZ Fluoroscopy of Multiple Coronary Arteries using Low Osmolar Contrast (ICD-10-PCS; 2022-07-04)
PROC: B2151ZZ Fluoroscopy of Left Heart using Low Osmolar Contrast (ICD-10-PCS; 2022-07-04)
PROC: B2181ZZ Fluoroscopy of Left Internal Mammary Bypass Graft using Low Osmolar Contrast (ICD-10-PCS; 2022-07-04)
PROC: 027035Z Dilation of Coronary Artery, One Artery with Two Drug-eluting Intraluminal Devices, Percutaneous Approach (ICD-10-PCS; principal; 2022-07-04 13:55)
PROC: 4A023N7 Measurement of Cardiac Sampling and Pressure, Left Heart, Percutaneous Approach (ICD-10-PCS; 2022-07-04 13:55)
DX: I21.4 Non-ST elevation (NSTEMI) myocardial infarction (principal); I50.22 Chronic systolic (congestive) heart failure; I25.810 Atherosclerosis of coronary artery bypass graft(s) without angina pectoris; I97.410 Intraoperative hemorrhage and hematoma of a circulatory system organ or structure complicating a cardiac catheterization; I11.0 Hypertensive heart disease with heart failure; D69.6 Thrombocytopenia, unspecified; F17.210 Nicotine dependence, cigarettes, uncomplicated; J44.9 Chronic obstructive pulmonary disease, unspecified; I25.2 Old myocardial infarction; I25.5 Ischemic cardiomyopathy; Z79.02 Long term (current) use of antithrombotics/antiplatelets; Z79.82 Long term (current) use of aspirin; Z79.899 Other long term (current) drug therapy; Z88.0 Allergy status to penicillin; Y69 Unspecified misadventure during surgical and medical care; Z71.6 Tobacco abuse counseling
CPT/HCPCS: 36415; 71046; 80048; 80053; 80061; 81003; 83735; 84484; 85025; 85049; 85610; 85730; 93005; 93459; 96365; 96366; 96376; 99285